=== PATIENT | male | born 1990 | race Two or more races ===

== ENCOUNTER 2020-09-02 06:35 | Emergency (ER) | payer MEDICAID ==
[~2020-09-02] VITALS: Ht 175.3 cm; Wt 84.0 kg
[2020-09-02] MEDS ORDERED: LIDOCAINE HCL/EPINEPHRINE 1%-EPI 1:100,000 10 ML VIAL IJ ONE (07:15)
[2020-09-02] MEDS ORDERED: TETANUS, DIPHTHERIA, PERTUSSIS VAC/PF 0.5ML (>7YR OLD) IM ONE (07:15)
[2020-09-02] MEDS ORDERED: ACETAMINOPHEN WITH CODEINE 300/30MG TABLET PO ONE (07:15)
[2020-09-02] MEDS ORDERED: SODIUM CHLORIDE 0.9% 1,000 ML IV ONE (07:15)
[2020-09-02] MEDS ORDERED: BACITRACIN ZINC OINT UDPKT TOP ONE (07:15)
[2020-09-02 07:34] VITALS: BP 125/63
[2020-09-02] MEDS ORDERED: CEPH500C2 MT (08:47)
== END 2020-09-02 09:06 | disposition home or self-care (01) ==
LOC: ER 06:35
DX: S61.511A Laceration without foreign body of right wrist, initial encounter (principal); B20 Human immunodeficiency virus [HIV] disease; X78.0XXA Intentional self-harm by sharp glass, initial encounter; Y93.89 Activity, other specified; Y92.9 Unspecified place or not applicable
CPT/HCPCS: 12004; 90471; 90715; 93005; 96360; 99283; J3490; J7030